=== PATIENT | male | born 1945 | race Caucasian/White ===

== ENCOUNTER 2017-06-30 21:58 | Inpatient (IN) | payer MEDICARE, MEDICAID ==
[~2017-06-30] VITALS: Ht 180.3 cm; Wt 98.8 kg
[~2017-06-30 21:58] MED LIST: ACET325T14 PO; ALBU1.25 NEB; BISA10SU54 PR; CIPR400P13 IV; CLON0.1T12 PO; CYAN2000 PO; DEXT1TAB7 PO; DEXT50DI3 IVPush; DIPH1TAB PO; DIPH25CA61 PO; DOCU-131 PO; FAMO20TA7 PO; FERR325T18 PO; FLUO20CA19 PO; GABA600T PO; GABA600T2 PO; GLUC1VIA IM; GUAI237S4 PO; HEPA5000 SQ; HYDR-882 PO; MAG355OR14 PO; MORP5SYR IV; NYST15PO9 TP; ONDA2VIA3 IV; ONDA4TAB10 PO; PIPE4.5V3 IV; POLY17PO5 PO; SIME80TA15 PO; lis
[2017-07-01 00:21] LABS: HEMATOCRIT 33.2 % (39.2-51.8); HEMOGLOBIN 11.2 g/dL (13.7-18.0); WHITE BLOOD COUNT 7.2 x10^3/uL (3.4-10)
[2017-07-01 00:25] LABS: DAU SCREEN DISCLAIMER
[2017-07-01 00:28] LABS: BLOOD UREA NITROGEN 32 mg/dL (7-18)
[2017-07-01 00:31] LABS: PATH.CAST-FLAG NOT PRESENT; SPERM-FLAG NOT PRESENT; SRC-FLAG NOT PRESENT; XTAL-FLAG NOT PRESENT; YLC-FLAG NOT PRESENT
[2017-07-01 00:42] LABS: ASPARTATE AMINO TRANSFERASE 12 U/L (15-37)
[2017-07-01 00:51] LABS: ACETAMINOPHEN < 2 mcg/mL (10-30)
[2017-07-01] MEDS ORDERED: CEFTRIAXONE PMX 1GM/50ML 50 ML IV ONE (01:30)
[2017-07-01] MEDS ORDERED: CEFTRIAXONE PMX 1GM/50ML 50 ML ONE (01:52)
[2017-07-01 03:22] VITALS: BP 171/75
[2017-07-01] MEDS ORDERED: ENALAPRILAT 1.25 MG/ML, 2ML IVPush PRN (04:30)
[2017-07-01] MEDS ORDERED: ACETAMINOPHEN 325 MG TABLET PO PRN (04:30)
[2017-07-01] MEDS ORDERED: TEMAZEPAM 15 MG CAPSULE PO PRN (04:30)
[2017-07-01] MEDS ORDERED: ONDANSETRON 2MG/ML, 2ML IVPush PRN (04:30)
[2017-07-01] MEDS: HEPARIN 5,000 UNITS/ML, 1ML SQ SCH ×3 (04:53→19:52)
[2017-07-01] MEDS: SODIUM CHLORIDE 0.9% 1,000 ML IV SCH ×3 (04:53→19:52)
[2017-07-01 04:55] VITALS: BP 154/67
[2017-07-01 07:43] VITALS: BP 157/70
[2017-07-01] MEDS: FLUOXETINE 20 MG CAPSULE PO SCH (08:46)
[2017-07-01] MEDS ORDERED: ALBUTEROL/IPRATROPIUM 2.5MG/0.5MG, 3 ML ONE (09:36)
[2017-07-01] MEDS: SODIUM CHLORIDE NASAL SPRAY 45ML BOTTLE NAS PRN ×4 (10:40→18:26)
[2017-07-01] MEDS: ALBUTEROL/IPRATROPIUM 2.5MG/0.5MG, 3 ML NPPB SCH ×3 (13:52→19:20)
[2017-07-01 14:28] VITALS: BP 117/42
[2017-07-01 18:49] VITALS: BP 142/57
[2017-07-02] MEDS: CEFTRIAXONE PMX 1GM/50ML 50 ML IV SCH (02:00)
[2017-07-02] MEDS: SODIUM CHLORIDE 0.9% 1,000 ML IV SCH ×3 (02:00→20:00)
[2017-07-02 02:04] VITALS: BP 100/50
[2017-07-02] MEDS: HEPARIN 5,000 UNITS/ML, 1ML SQ SCH ×3 (04:31→19:57)
[2017-07-02 04:35] LABS: HEMOGLOBIN 9.4 g/dL (13.7-18.0); WHITE BLOOD COUNT 6.3 x10^3/uL (3.4-10)
[2017-07-02 04:43] LABS: BLOOD UREA NITROGEN 27 mg/dL (7-18)
[2017-07-02 07:36] VITALS: BP 123/53
[2017-07-02] MEDS: ALBUTEROL/IPRATROPIUM 2.5MG/0.5MG, 3 ML NPPB SCH ×4 (07:41→19:00)
[2017-07-02] MEDS: FLUOXETINE 20 MG CAPSULE PO SCH (08:41)
[2017-07-02 14:36] VITALS: BP 173/73
[2017-07-02 15:45] VITALS: BP 144/61
[2017-07-02 18:37] VITALS: BP 133/65
[2017-07-03 00:50] VITALS: BP 115/56
[2017-07-03] MEDS: SODIUM CHLORIDE 0.9% 1,000 ML IV SCH ×3 (03:30→20:48)
[2017-07-03] MEDS: HEPARIN 5,000 UNITS/ML, 1ML SQ SCH ×3 (03:30→20:47)
[2017-07-03] MEDS: CEFTRIAXONE PMX 1GM/50ML 50 ML IV SCH (03:32)
[2017-07-03 04:48] LABS: HEMOGLOBIN 9.4 g/dL (13.7-18.0); WHITE BLOOD COUNT 5.3 x10^3/uL (3.4-10)
[2017-07-03 05:00] LABS: BLOOD UREA NITROGEN 24 mg/dL (7-18)
[2017-07-03] MEDS: ALBUTEROL/IPRATROPIUM 2.5MG/0.5MG, 3 ML NPPB SCH ×4 (06:54→18:47)
[2017-07-03 07:10] VITALS: BP 108/56
[2017-07-03] MEDS: FLUOXETINE 20 MG CAPSULE PO SCH (08:14)
[2017-07-03 14:20] VITALS: BP 160/56
[2017-07-03 19:49] VITALS: BP 142/61
[2017-07-04] MEDS: CEFTRIAXONE PMX 1GM/50ML 50 ML IV SCH (02:33)
[2017-07-04] MEDS: HEPARIN 5,000 UNITS/ML, 1ML SQ SCH ×2 (04:59→12:23)
[2017-07-04] MEDS: SODIUM CHLORIDE 0.9% 1,000 ML IV SCH ×2 (04:59→16:27)
[2017-07-04 05:03] VITALS: BP 114/55
[2017-07-04] MEDS: ALBUTEROL/IPRATROPIUM 2.5MG/0.5MG, 3 ML NPPB SCH ×3 (06:34→15:07)
[2017-07-04 08:24] VITALS: BP 114/62
[2017-07-04] MEDS: FLUOXETINE 20 MG CAPSULE PO SCH (08:37)
[2017-07-04 14:01] VITALS: BP 125/61
== END 2017-07-04 17:20 | disposition home health service (06) | DRG 682 ==
LOC: ED 07-01 00:30 → EDIP 07-01 02:24 → 3NW 07-01 02:56
PROVIDERS: ADMIT Internal Medicine; ATTEND Internal Medicine
DX: N17.0 Acute kidney failure with tubular necrosis (principal); G93.41 Metabolic encephalopathy; J96.11 Chronic respiratory failure with hypoxia; I11.9 Hypertensive heart disease without heart failure; Z99.81 Dependence on supplemental oxygen; D64.9 Anemia, unspecified; S00.12XA Contusion of left eyelid and periocular area, initial encounter; N30.90 Cystitis, unspecified without hematuria; G47.00 Insomnia, unspecified; F32.9 Major depressive disorder, single episode, unspecified; G62.9 Polyneuropathy, unspecified; G89.29 Other chronic pain; J44.9 Chronic obstructive pulmonary disease, unspecified; R29.6 Repeated falls; Z60.2 Problems related to living alone; Z87.891 Personal history of nicotine dependence; Z91.81 History of falling; W18.39XA Other fall on same level, initial encounter; Y92.89 Other specified places as the place of occurrence of the external cause; Y93.89 Activity, other specified; Y99.8 Other external cause status
CPT/HCPCS: 36415; 70450; 71010; 72125; 80048; 80053; 80307; 80329; 81001; 82140; 83735; 84443; 85025; 87086; 94640; 96365; J0696; J1644; J7620; G0479; G0480; J7030